=== PATIENT | female | born 1975 | race American Indian/Alaskan Native ===

== ENCOUNTER 2017-09-21 14:24 | Emergency (ER) | payer SELFPAY ==
[2017-09-21] MEDS ORDERED: CATAPRES ONE (15:28)
--- NOTE | 2017-09-21 15:33 | Emergency Department Report ---
Chief Complaint: Skin/Abscess/Foreign Body Stated Complaint: BIT ON LEG Time Seen by Provider: 09/21/17 15:29 - HPI History of Present Illness: Patient here reports that she has redness and a rash to the back of her right thigh and states that she's been bitten. Her pain to her right side is 5 out of 10. Denies being diabetic. Patient blood pressure is 201/131 and she says she gets headache on and off but she doesn't ever take her blood pressure. History of high blood pressure and only. Patient has a history of tubal ligation in 2006. Denies any chest pain or shortness of breath. Patient is not currently taking any blood pressure medication. - ROS Review of Systems: All systems are negative unless stated in HPI above - Exam Vital Signs: Vital Signs 09/21/17 14:32 Temperature 98.6 F Pulse Rate 84 Respiratory 84 H Rate Blood Pressure 201/131 O2 Sat by Pulse 99 Oximetry Physical Exam: Gen.: 42-year-old female well-nourished well-developed in no acute distress. Mini neurological exam: GCS of 15, no facial drooping. Speech is clear and fluid. Gait is normal. Patient ablated without any difficulties. Skin: Noted erythema area to Right posterior thigh. Tender to palpate. MSE screening note: Focused history and physical exam performed. Due to findings the following was ordered: Given clonidine 0.2 mg in triage area and blood pressure will be reevaluated. ED Medical Decision Making - EKG Data Interpretation: pericarditis - Medical Decision Making MDM: Patient given clonidine 0.2 mg her elevated blood pressure. She'll be going to fast track area where she'll be seen by provider. Blood pressure to be rechecked in one hour. Patient stable in no distress. ED Disposition for MSE Condition: Stable
[2017-09-21] MEDS ORDERED: CATAPRES PO ONE (15:39)
[2017-09-21] MEDS ORDERED: TYLENOL PO ONE (16:43)
--- NOTE | 2017-09-21 16:45 | Emergency Department Report ---
- General Chief complaint: Skin/Abscess/Foreign Body Stated complaint: BIT ON LEG Time Seen by Provider: 09/21/17 15:29 Source: patient Mode of arrival: Carried (Peds) Limitations: No Limitations - History of Present Illness Initial comments: 42-year-old female past medical history hypertension, anemia presents with complaint of 4 days of cellulitis and inflammation to right medial thigh. Patient denies fevers or chills. Denies chest pain palpitations shortness of breath nausea vomiting. Fully lucid awake alert and oriented 3 and ambulatory. Visible area of cellulitis approximately 7-8 cm diameter right inner thigh region. No other complaints. Patient states she is not currently on medication for high blood pressure. MD complaint: abscess/boil Onset/Timin -: days(s) Location: RLE (right thigh) Severity: moderate Severity scale (0 -10): 6 Quality: aching Consistency: constant Improves with: none Context: none Treatments Prior to Arrival: none - Related Data Previous Rx's Medication Instructions Recorded Last Taken Type Cephalexin [Keflex] 500 mg PO BID #14 capsule 09/21/17 Unknown Rx Sulfamethoxazole/Trimethoprim 1 each PO BID #14 tablet 09/21/17 Unknown Rx [Bactrim DS TAB] oxyCODONE /ACETAMINOPHEN [Percocet 1 tab PO Q6HR PRN #12 tablet 09/21/17 Unknown Rx 5/325] Allergies Allergy/AdvReac Type Severity Reaction Status Date / Time No Known Allergies Allergy Unverified 02/13/14 10:47 Abscess Boil HPI - HPI Chief Complaint: Skin/Abscess/Foreign Body Stated Complaint: BIT ON LEG Time Seen by Provider: 09/21/17 15:29 Home Medications: Previous Rx's Medication Instructions Recorded Last Taken Type Cephalexin [Keflex] 500 mg PO BID #14 capsule 09/21/17 Unknown Rx Sulfamethoxazole/Trimethoprim 1 each PO BID #14 tablet 09/21/17 Unknown Rx [Bactrim DS TAB] oxyCODONE /ACETAMINOPHEN [Percocet 1 tab PO Q6HR PRN #12 tablet 09/21/17 Unknown Rx 5/325] Allergies/Adverse Reactions: Allergies Allergy/AdvReac Type Severity Reaction Status Date / Time No Known Allergies Allergy Unverified 02/13/14 10:47 ED Review of Systems ROS: Stated complaint: BIT ON LEG Other details as noted in HPI Constitutional: denies: chills, fever Eyes: denies: eye pain, eye discharge, vision change ENT: denies: ear pain, throat pain Respiratory: denies: cough, shortness of breath, wheezing Cardiovascular: denies: chest pain, palpitations Endocrine: no symptoms reported Gastrointestinal: denies: abdominal pain, nausea, diarrhea Genitourinary: denies: urgency, dysuria, discharge Musculoskeletal: denies: back pain, joint swelling, arthralgia Skin: as per HPI. denies: rash, lesions Neurological: denies: headache, weakness, paresthesias Psychiatric: denies: anxiety, depression Hematological/Lymphatic: denies: easy bleeding, easy bruising ED Past Medical Hx - Past Medical History Previous Medical History?: Yes Hx Hypertension: Yes (only with ) Additional medical history: anemia, Vaginal delivery - Surgical History Past Surgical History?: Yes Additional Surgical History: Tubal 2007 - Social History Smoking Status: Never Smoker Substance Use Type: Alcohol, Non Opiate Pain - Medications Home Medications: Home Medications Medication Instructions Recorded Confirmed Last Taken Type Cephalexin [Keflex] 500 mg PO BID #14 capsule 09/21/17 Unknown Rx Sulfamethoxazole/Trimethoprim 1 each PO BID #14 tablet 09/21/17 Unknown Rx [Bactrim DS TAB] oxyCODONE /ACETAMINOPHEN [Percocet 1 tab PO Q6HR PRN #12 tablet 09/21/17 Unknown Rx 5/325] ED Physical Exam - General Limitations: No Limitations General appearance: alert, in no apparent distress - Head Head exam: Present: atraumatic, normocephalic - Eye Eye exam: Present: normal appearance, PERRL, EOMI - ENT ENT exam: Present: mucous membranes moist - Neck Neck exam: Present: normal inspection - Respiratory Respiratory exam: Present: normal lung sounds bilaterally. Absent: respiratory distress - Cardiovascular Cardiovascular Exam: Present: regular rate, normal rhythm. Absent: systolic murmur, diastolic murmur, rubs, gallop - GI/Abdominal GI/Abdominal exam: Present: soft, normal bowel sounds - Extremities Exam Extremities exam: Present: normal inspection - Expanded Lower Extremity Exam Right Hip exam: Present: normal inspection, full ROM Upper Leg exam: Present: tenderness Knee exam: Present: normal inspection, full ROM Lower Leg exam: Present: normal inspection, full ROM Ankle exam: Present: normal inspection, full ROM Foot/Toe exam: Present: normal inspection, full ROM Neuro vascular tendon exam: Present: no vascular compromise 1 - right inner thigh cellulitis - Back Exam Back exam: Present: normal inspection - Neurological Exam Neurological exam: Present: alert, oriented X3, CN II-XII intact, normal gait - Psychiatric Psychiatric exam: Present: normal affect, normal mood - Skin Skin exam: Present: warm, dry, intact, normal color. Absent: rash ED Course Vital Signs 09/21/17 09/21/17 09/21/17 14:32 16:49 17:17 Temperature 98.6 F Pulse Rate 84 85 Respiratory 84 H 18 18 Rate Blood Pressure 201/131 162/103 O2 Sat by Pulse 99 100 Oximetry - I & D Right Medial Thigh Type of Procedure: Simple Site: right medial inner thigh Blade Size: 11 I & D Procedure: betadine prep Progress: Infiltrated with lidocaine 2% without epinephrine. Good local anesthesia achieved. Single stab incision made with slight purulent drainage. Procedure tolerated well with minimal bleeding. Decompression of abscess achieved. Covered with 2 x 2 gauze afterward. No packing placed. ED Medical Decision Making - Medical Decision Making a/P abscess with some surroundign cellulitis, asymptomatic HTN 1- successful I&D, course of keflex and bactrim 2- I advised pt to continue taking her BP meds and f/u with PMD 3- case d/w dr. cochran before discharge Critical care attestation.: If time is entered above; I have spent that time in minutes in the direct care of this critically ill patient, excluding procedure time. ED Disposition Clinical Impression: Asymptomatic hypertension, Cellulitis of right thigh, Abscess, Encounter for incision and drainage procedure Disposition: TO HOME OR SELFCARE Is pt being admited?: No Does the pt Need Aspirin: No Condition: Stable Instructions: Cellulitis (ED), Abscess Incision and Drainage (ED), Abscess (ED) , Hypertension (ED) Prescriptions: Cephalexin [Keflex] 500 mg PO BID #14 capsule oxyCODONE /ACETAMINOPHEN [Percocet 5/325] 1 tab PO Q6HR PRN #12 tablet PRN Reason: Pain Sulfamethoxazole/Trimethoprim [Bactrim DS TAB] 1 each PO BID #14 tablet Referrals: [facility] [Outside] - 3-5 Days [facility] [Outside] - 3-5 Days Forms: Accompanied Note, Work/School Release Form(ED) Time of Disposition: 18:12
[2017-09-21] MEDS ORDERED: XYLOCAINE 1% 20 mL INFILTRATI ONE (16:47)
[2017-09-21 16:53] VITALS: BP 162/103
[2017-09-21] MEDS ORDERED: NORCO 5/325 PO ONE (18:15)
== END 2017-09-21 18:58 | disposition home or self-care (01) ==
LOC: ED 14:24
DX: L02.415 Cutaneous abscess of right lower limb (principal); L03.115 Cellulitis of right lower limb; I10 Essential (primary) hypertension
CPT/HCPCS: 87116; 99282

== ENCOUNTER 2018-03-15 07:18 | Emergency (ER) | payer SELFPAY ==
[2018-03-15] MEDS ORDERED: ZOFRAN ODT PO ONE (08:25)
--- NOTE | 2018-03-15 08:27 | Emergency Department Report ---
ED ENT HPI - General Chief complaint: Sore Throat Stated complaint: SORE THROAT Time Seen by Provider: 03/15/18 08:18 Source: patient Mode of arrival: Ambulatory Limitations: No Limitations - History of Present Illness Initial comments: 42f pmh obesity p/w c/o sore throat, cough, nausea x3-4 days. Patient is awake alert and oriented 3 fully lucid. Some subjective fevers and chills. Primarily complaining of sore throat. Multiple sick contacts at home with similar symptoms. Patient denies abdominal pain but does state that sore throat is making her nauseous. No other complaints otherwise. Onset/Timin -: days(s) Location: throat Severity: moderate Quality: aching Consistency: constant Improves with: none - Related Data Previous Rx's Medication Instructions Recorded Last Taken Type Cephalexin [Keflex] 500 mg PO BID #14 capsule 09/21/17 Unknown Rx Sulfamethoxazole/Trimethoprim 1 each PO BID #14 tablet 09/21/17 Unknown Rx [Bactrim DS TAB] oxyCODONE /ACETAMINOPHEN [Percocet 1 tab PO Q6HR PRN #12 tablet 09/21/17 Unknown Rx 5/325] Dextromethorphan/Benzocaine 1 each PO Q4H PRN #1 box 03/15/18 Unknown Rx [Cepacol Sorethroat-Cough Brendan] Ibuprofen [Motrin] 800 mg PO Q8HR PRN #20 tablet 03/15/18 Unknown Rx Ondansetron [Zofran Odt] 4 mg PO Q8H PRN #12 tab.rapdis 03/15/18 Unknown Rx Allergies Allergy/AdvReac Type Severity Reaction Status Date / Time No Known Allergies Allergy Unverified 02/13/14 10:47 ED Dental HPI - General Chief complaint: Sore Throat Stated complaint: SORE THROAT Time Seen by Provider: 03/15/18 08:18 Source: patient Mode of arrival: Ambulatory Limitations: No Limitations - Related Data Previous Rx's Medication Instructions Recorded Last Taken Type Cephalexin [Keflex] 500 mg PO BID #14 capsule 09/21/17 Unknown Rx Sulfamethoxazole/Trimethoprim 1 each PO BID #14 tablet 09/21/17 Unknown Rx [Bactrim DS TAB] oxyCODONE /ACETAMINOPHEN [Percocet 1 tab PO Q6HR PRN #12 tablet 09/21/17 Unknown Rx 5/325] Dextromethorphan/Benzocaine 1 each PO Q4H PRN #1 box 03/15/18 Unknown Rx [Cepacol Sorethroat-Cough Brendan] Ibuprofen [Motrin] 800 mg PO Q8HR PRN #20 tablet 03/15/18 Unknown Rx Ondansetron [Zofran Odt] 4 mg PO Q8H PRN #12 tab.rapdis 03/15/18 Unknown Rx Allergies Allergy/AdvReac Type Severity Reaction Status Date / Time No Known Allergies Allergy Unverified 02/13/14 10:47 ED Review of Systems ROS: Stated complaint: SORE THROAT Other details as noted in HPI Constitutional: denies: chills, fever Eyes: denies: eye pain, eye discharge, vision change ENT: throat pain. denies: ear pain Respiratory: denies: cough, shortness of breath, wheezing Cardiovascular: denies: chest pain, palpitations Endocrine: no symptoms reported Gastrointestinal: denies: abdominal pain, nausea, diarrhea Genitourinary: denies: urgency, dysuria, discharge Musculoskeletal: denies: back pain, joint swelling, arthralgia Skin: denies: rash, lesions Neurological: denies: headache, weakness, paresthesias Psychiatric: denies: anxiety, depression Hematological/Lymphatic: denies: easy bleeding, easy bruising ED Past Medical Hx - Past Medical History Previous Medical History?: No Hx Hypertension: Yes (only with ) Additional medical history: anemia, Vaginal delivery - Surgical History Past Surgical History?: Yes Additional Surgical History: Tubal 2007 - Social History Smoking Status: Never Smoker Substance Use Type: None - Medications Home Medications: Home Medications Medication Instructions Recorded Confirmed Last Taken Type Cephalexin [Keflex] 500 mg PO BID #14 capsule 09/21/17 Unknown Rx Sulfamethoxazole/Trimethoprim 1 each PO BID #14 tablet 09/21/17 Unknown Rx [Bactrim DS TAB] oxyCODONE /ACETAMINOPHEN [Percocet 1 tab PO Q6HR PRN #12 tablet 09/21/17 Unknown Rx 5/325] Dextromethorphan/Benzocaine 1 each PO Q4H PRN #1 box 03/15/18 Unknown Rx [Cepacol Sorethroat-Cough Brendan] Ibuprofen [Motrin] 800 mg PO Q8HR PRN #20 tablet 03/15/18 Unknown Rx Ondansetron [Zofran Odt] 4 mg PO Q8H PRN #12 tab.rapdis 03/15/18 Unknown Rx ED Physical Exam - General Limitations: No Limitations General appearance: alert, in no apparent distress - Head Head exam: Present: atraumatic, normocephalic - Eye Eye exam: Present: normal appearance, PERRL, EOMI - ENT ENT exam: Present: mucous membranes moist - Expanded ENT Exam Expanded Throat exam: Positive: tonsillar erythema (bilateral tonsillar erythema. No FITNESS COORDINATOR uvula is midline) - Neck Neck exam: Present: normal inspection - Respiratory Respiratory exam: Present: normal lung sounds bilaterally. Absent: respiratory distress - Cardiovascular Cardiovascular Exam: Present: regular rate, normal rhythm. Absent: systolic murmur, diastolic murmur, rubs, gallop - GI/Abdominal GI/Abdominal exam: Present: soft, normal bowel sounds - Extremities Exam Extremities exam: Present: normal inspection - Back Exam Back exam: Present: normal inspection - Neurological Exam Neurological exam: Present: alert, oriented X3 - Psychiatric Psychiatric exam: Present: normal affect, normal mood - Skin Skin exam: Present: warm, dry, intact, normal color. Absent: rash ED Course Vital Signs 03/15/18 07:29 Temperature 99 F Pulse Rate 97 H Blood Pressure 156/102 O2 Sat by Pulse 98 Oximetry ED Medical Decision Making - Medical Decision Making A/P: Tonsillitis 1-throat lozenges, Motrin when necessary, Zofran 2-follow up with primary care doctor 3-xr unremarkable Critical care attestation.: If time is entered above; I have spent that time in minutes in the direct care of this critically ill patient, excluding procedure time. ED Disposition Clinical Impression: Sore throat Disposition: DC-01 TO HOME OR SELFCARE Is pt being admited?: No Does the pt Need Aspirin: No Condition: Stable Instructions: Tonsillitis (ED), Upper Respiratory Infection (ED) Prescriptions: Dextromethorphan/Benzocaine [Cepacol Sorethroat-Cough Brendan] 1 each PO Q4H PRN #1 box PRN Reason: Sore Throat Ibuprofen [Motrin] 800 mg PO Q8HR PRN #20 tablet PRN Reason: Pain Ondansetron [Zofran Odt] 4 mg PO Q8H PRN #12 tab.rapdis PRN Reason: Nausea Referrals: [facility] [Provider Group] - 3-5 Days [facility] [Outside] - 3-5 Days Forms: Work/School Release Form(ED), Accompanied Note Time of Disposition: 08:46
--- NOTE | 2018-03-15 08:40 | XRay Report ---
ROUTINE CHEST, TWO VIEWS: HISTORY: Worsening cough. No comparison. The trachea, heart, mediastinal contour, lung sherwood and bony thorax are unremarkable. IMPRESSION: Unremarkable chest x-ray.
[2018-03-15] MEDS ORDERED: DECADRON IM ONE (08:42)
[2018-03-15] MEDS ORDERED: BICILLIN L-A IM ONE (08:43)
[2018-03-15 09:23] VITALS: BP 146/100
== END 2018-03-15 09:22 | disposition home or self-care (01) ==
LOC: ED 07:18
DX: J02.9 Acute pharyngitis, unspecified (principal); Z98.51 Tubal ligation status
CPT/HCPCS: 71046; 87116; 87430; 96372; 99284; J0561; J1100; Q0162

== ENCOUNTER 2022-06-25 08:14 | Observation (INO) | payer OTHER ==
[2022-06-22 11:54] LABS: Hematocrit 35.3 % (30.3-42.9); Hemoglobin 12.3 gm/dl (10.1-14.3); Mean Corpuscular HGB Conc 35 % (30-34); Mean Corpuscular Volume 95 fl (79-97); Platelet Count 270 K/mm3 (140-440); Red Blood Count 3.72 M/mm3 (3.65-5.03); Red Cell Distribution Width 13.2 % (13.2-15.2)
[2022-06-22 12:18] LABS: BUN/Creatinine Ratio 17; Blood Urea Nitrogen 19 mg/dL (7-17); Calcium 9.4 mg/dL (8.4-10.2); Hemolysis Index 5
--- NOTE | 2022-06-24 00:59 | History and Physical Report ---
History of Present Illness Date of examination: 06/22/22 History of present illness: Patient has been reassessed/reevaluated. H&P has been reviewed. No interval changes. This is a 47 years old female who presents with uterine fibroids.and menstrual disorder. The symptoms began 3 months ago. She complains of irregular menses, heavy bleeding, dysmenorrhea, pelvic pain, pelvic pressure and clotting. Menses started at age 14. Menstrual flow lasts > 7 days. Patient's work up has included hysterosonogram with a benign endometrial biopsy and revealed endometrial polyp and myomas. Patient's symptoms when present disrupts her normal daily activities Patient desires definitive treatment ] Vital Signs: Patient Profile: 47 Years Old Female LMP: 05/28/2022 Height: 65 inches Weight: 250 pounds BMI: 41.60 Temp: 97.6 degrees F BP sittin / 80 (left arm) Pt. in pain? yes Location: pelvis Intensity: 5 Type: aching Menstrual History: LMP (date): 05/28/2022 Past History : 1 Term Births: 1 Premature Births: 0 Living Children: 1 Para: 1 Mult. Births: 0 Prev : 0 Aborta: 0 Elect. Ab: 0 Spont. Ab: 0 Ectopics: 0 Current Allergies (reviewed today): No known allergies Past Medical History: Hypertension Pneumonia (2019) Fibroids Endometrial Polyp Past Surgical History: Lsc Tubal Ligation (2005) Family History Summary: Other Family Member - Has Family History of Uterine Cancer - Entered On: 04/16/2022 Other Family Member - Has Family History of Ovarian Cancer - Entered On: 04/16/2022 Other Family Member - Has No Family History of Colon Cancer - Entered On: Other Family Member - Has No Family History of Breast Cancer - Entered On: 04/16/2022 Other Family Member - Has Family History of Hypertension - Entered On: 04/16/2022 Social History: Marital Status: Children: 1 Occupation: [employer] Risk Factors Tobacco use: never Passive smoke exposure: no Alcohol use: yes Type: occ Caffeine use (drinks/day): 0 Exercise (times/week): 4 Seatbelt use: 100 % [employer] History Operations: Lsc Tubal Ligation (2005) Abnormal PAP: negative Uterine Anomaly: positive fibroids Infection History HIV Risk Eval: no Personal hx. of genital herpes: no Review of Systems General Complains of fatigue. Denies fever, chills, sweats, anorexia, weakness, malaise, weight loss and sleep disorder. Complains of menorrhagia, pelvic pain and painful periods. Denies vaginal discharge, incontinence, dysuria, hematuria, urinary frequency, amenorrhea, abnormal vaginal bleeding, genital sores, decreased libido, painful sex, urinary urgency, hot flashes, vaginal dryness, vaginal itching and vaginal odor. CV Denies chest pains, palpitations, syncope, dyspnea on exertion, orthopnea, PND and peripheral edema. Resp Denies cough, dyspnea at rest, excessive sputum, hemoptysis, wheezing and pleurisy. GI Denies nausea, vomiting, diarrhea, constipation, change in bowel habits, abdominal pain, melena, hematochezia, jaundice, gas/bloating, indigestion/heartburn, dysphagia and odynophagia. Breast Denies left breast lump, right breast lump, nipple discharge, bloody discharge from nipple, breast pain, abnormal mammogram and breast enlargement. Psych Denies depression, anxiety, irritability and mood swings. Past History Past Medical History: hypertension, other (SEE HPI FOR DETAILS) Past Surgical History: Other (SEE HPI FOR DETAILS) Social history: full code, other (SEE HPI FOR DETAILS) Family history: other (SEE HPI FOR DETAILS) Medications and Allergies Allergies Allergy/AdvReac Type Severity Reaction Status Date / Time No Known Allergies Allergy Verified 06/16/22 15:24 Home Medications Medication Instructions Recorded Confirmed Last Taken Type Losartan/Hydrochlorothiazide 1 each PO QDAY 06/16/22 06/16/22 Unknown History [Losartan-Hctz 50-12.5 mg Tab] Phentermine HCl [Adipex-P] 37.5 mg PO QDAY 06/16/22 06/16/22 Unknown History Review of Systems Constitutional: other (SEE HPI FOR DETAILS) Exam - Physical Exam Narrative exam: HEENT: normocephalic, no lesions or deformities Skin no significant abnormal lesions or rashes Chest: respiratory effort normal, clear to auscultation CV: regular, normal S1-S2, no murmur, no rub, no gallop Abdomen: Obese, normal bowel sounds, soft, nontender, no HSM Neuro: no gross anomalities Extremities: no clubbing, cyanosis, or edema [employer] Exams Vulva/Vagina: No lesions, normal BUS, normal rugae Cervix: No lesions; no cervical motion tenderness Uterus: unable to palpate due to obesity Adnexae: unable to palpate due to obesity Rectovaginal: exam defered - Constitutional Vitals: Temp Pulse Resp BP Pulse Ox 98.2 F 76 16 108/76 100 06/22/22 11:40 06/22/22 11:40 06/22/22 11:40 06/22/22 11:40 06/22/22 11:40 Results - Labs CBC & Chem 7: 06/22/22 11:45 06/22/22 06:00 Assessment and Plan - Patient Problems (1) Intramural leiomyoma of uterus Current Visit: No Status: Acute Plan to address problem: Diagnosis explained to patient . Questions answered. Discussed with patient various medical, surgical and radiological therapies common for treatment including expectant management, myomectomy hysterectomy and uterine artery embolization Patient desires robotic assisted total hysterectomy. Consent reviewed and signed . The risks and alternatives for this surgery were reviewed with the patient. Discuss the risks of the surgery including infection, bleeding possibly heavy enough to require a blood transfusion, possible damage to bowel, bladder or ureter. Patient understand that this surgery with make her sterile.Patient understands if her ovaries are removed she will become menopausal. Also if unable to complete robitcally a laparotomy may be required. Patient understands and desires to proceed. (2) Excessive and frequent menstruation with regular cycle Current Visit: No Status: Acute Plan to address problem: Probably secondary to # 1& 3 (3) Endometrial polyp Current Visit: No Status: Acute (4) Dysmenorrhea Current Visit: No Status: Acute Plan to address problem: Probably secondary to # 1 (5) Chronic pelvic pain in female Current Visit: No Status: Chronic Plan to address problem: Probably secondary to # 1 (6) Hypertension Current Visit: No Status: Chronic Qualifiers: Hypertension type: primary hypertension Qualified Code(s): I10 - Essential (primary) hypertension (7) BMI 40.0-44.9, adult Current Visit: No Status: Chronic Plan to address problem: Patient has been advised that obesity does increase risks of surgical and risks of post operative complications.
[~2022-06-25 08:14] MED LIST: ACETAMINOPHEN 500 MG TAB PO SCH; CELECOXIB 200 MG CAP PO NR; GABAPENTIN 300 MG CAP PO NR; LACTATED RINGERS 1,000 ML IV SCH; MIDAZOLAM 2 MG/2 ML INJ IV NR; SCOPOLAMINE TRANSDERMAL PATCH 72 HR TD NR; fentaNYL 100 MCG/2 ML INJ IV PRN
[2022-06-25] MEDS ORDERED: BUPIVACAINE-EPINEPHRINE/PF 0.25%-1:200,000 (30 ML) VIAL INFILTRATI ONE (10:20)
[2022-06-25] MEDS ORDERED: dexAMETHasone 4 MG/ML VIAL ONE (10:20)
[2022-06-25] MEDS ORDERED: ONDANSETRON 4 MG/2 ML INJ ONE (10:41)
[2022-06-25] MEDS ORDERED: dexAMETHasone 20 MG/5 ML VIAL ONE (10:41)
[2022-06-25] MEDS ORDERED: ROCURONIUM 50 MG/5 ML INJ IV ONE (10:42)
[2022-06-25] MEDS ORDERED: HYDROmorphone 1 MG/1 ML INJ ONE (10:42)
[2022-06-25] MEDS ORDERED: propofoL 200 MG/20 ML VIAL IV ONE (10:42)
[2022-06-25] MEDS ORDERED: LIDOCAINE MPF (2%) 20 MG/1 ML VIAL 5 ML ONE (10:42)
[2022-06-25] MEDS ORDERED: SUCCINYLCHOLINE CHLORIDE 200 MG/10 ML INJ MDV ONE (10:42)
[2022-06-25] MEDS ORDERED: NEOMY 40 MG/POLYMYXIN B 200,000 UNITS/ML (GU) AMPULE IR ONE ×2 (11:27→13:06)
--- NOTE | 2022-06-25 11:35 | Anesthesia Day of Surgery ---
Anesthesia Day of Surgery - Day of Surgery Patient Examined: Yes Patient H&P Reviewed: Yes Patient is NPO: Yes
--- NOTE | 2022-06-25 11:35 | Anesthesia Consultation ---
Anesthesia Consult and Med Hx Date of service: 06/25/22 - Airway Anesthetic Teeth Evaluation: Good ROM Head & Neck: Adequate Mental/Hyoid Distance: Adequate Mallampati Class: Class II Intubation Access Assessment: Probably Good - Pre-Operative Health Status ASA Pre-Surgery Classification: ASA3 Proposed Anesthetic Plan: General - Pulmonary Hx Respiratory Symptoms: No - Cardiovascular System Hx Hypertension: Yes - Central Nervous System CVA: No - Endocrine Hx Renal Disease: No Hx Liver Disease: No Hx Insulin Dependent Diabetes: No Hx Non-Insulin Dependent Diabetes: No Hx Thyroid Disease: No - Other Systems Hx Obesity: Yes (BMI 41) - Additional Comments Anesthesia Medical History Comments: No prior GA. No FHx anesthetic complications.
[2022-06-25] MEDS ORDERED: ONDANSETRON 4 MG/2 ML INJ IV PRN (11:39)
[2022-06-25] MEDS ORDERED: oxyCODONE /ACETAMINOPHEN 5-325MG TAB PO PRN (12:00)
[2022-06-25] MEDS ORDERED: SODIUM CHLORIDE 0.9% IRR 1,500 ML BOTTLE IR ONE (13:07)
[2022-06-25] MEDS ORDERED: SODIUM CHLORIDE 0.9% IRRIG SOLN 2000 ML IR ONE (13:07)
--- NOTE | 2022-06-25 14:09 | Operative Report ---
Operative Report Operative Report: Date of procedure: June 25, 2022 Pre-operative diagnosis: Symptomatic leiomyomata with menorrhalgia dysmenorrhea pelvic pain Post-operative diagnosis: Same Procedure name(s): Robotic assisted total hysterectomy with bilateral salpingectomy Surgeon: Panda Paredes MD Newspaper Managing Editor: Lor Lu, certified alcohol and drug counselor Anesthesia: General endotracheal EBL: 125 cc Complications: None Findings: Patient probably 8 to 10 weeks size uterus with bilateral interrupted fallopian tubes and normal-appearing ovaries Specimen(s): Uterus with cervix and bilateral fallopian tubes Procedure: Patient was brought to the operating room where general anesthesia was induced without difficulty. Patient was placed in the dorsal lithotomy position. Prepped and draped in the usual sterile manner for robotic procedure. Surgical timeout was performed. Carrillo catheter was placed without difficulty. Speculum was placed in the vagina. A medium V-Care Uterine manipulator was placed without difficulty. Attention was now switched to the patient's abdomen. A vertical supra-umbilicus incision was made with a scalpel. A 8 mm trocar was placed in this incision under direct visualization. Intra-abdominal placement was verified with no evidence of internal organ damage. The patient was insufflated approximately 3-1/2 L of CO2 gas. She was placed in Trendelenburg position. The patient pelvic findings were noted as above. It was determined that the patient was a candidate for robotic procedure. Next 3 additional 8 mm trochars were placed for the robotic arms. 1 trocar was placed approximately 8cm from the center trocar on the patient's right and the 2 other trocar placements were placed left of the midline. The first 1 was approximately 8 cm from the midline incision with additional 1 place laterally approximately 6 to 8 cm. Each robotic trocar was placed under direct visualization with no evidence of internal organ damage. One 5 mm trocar was placed 2 fingerbreadths above the right iliac crest. At this time the patient was placed in extreme Trendelenburg. The da Mathew robot was then docked on the patient's right side. The trocars connected to the robot appropriately robotic instruments were placed under direct visualization no evidence of internal organ damage.. At this time I took my place under the robotic operating ochoa. Starting on the patient's right side the ureter was identified and found to be out of the operative field. Using the Synchroseal device the mesosalpinx under the fallopian tube were cauterized and cut starting from the distal end. Next the round ligament on that side was cauterized and cut. The broad ligament was opened and the bladder flap was started and taken to the midline on the side. Posterior leaf of the broad ligament was opened more. Next the utero-ovarian complex was then cauterized and cut. The uterine vessels were skeletonized. The ureter was clearly seen out of the operative field. The bladder was pushed away from the anterior uterus. The right uterine vessels were then cauterized and cut. Attention was then switched to the patient's left side. The same procedure was repeated on the left side with free and the left fallopian tube, completing the the bladder flap followed by cauterizing and cutting the utero-ovarian complex then isolating the uterine vessels cauterized and cutting and completing the bladder flap from the left side. At this time the uterus was appearing very cyanotic. After inspecting the bladder flap to insured no evidence of bladder injury, the colpotomy was then started. Incision started at 12 o'clock position until the V-Care could be seen. This incision was extended from 12-9 o'clock . Then from 12:00 to 3:00. Then from 9:00 to 6:00. This incision was extended from 3:00 to 6:00. At this time colpotomy was complete with no evidence of adjacent organ damage. The dental assistant instructor remove the uterus from through the colpotomy site. The vaginal cuff was irrigated and cauterized and found to be hemostatic. The cuff was closed with roboticly using 0 V- Lock suture. This closure was hemostatic after irrigation and Bovie. All pedicles were inspected and found to be hemostatic. The ureters were identified bilaterally and found to be functioning normal. The patient had clear urine in the Carrillo catheter with no evidence of mixture with blood. All instruments were then removed. The trocar sites were closed incisions were closed subcuticularly with 4-0 Monocryl. Dermabond was placed over the skin incisions. The patient tolerated procedure well. She was awakened in the operating room and accompanied to the recovery room in good condition.
[2022-06-25] MEDS: HYDROmorphone 0.5 MG/0.5 ML INJ IV PRN ×4 (14:15→15:14)
--- NOTE | 2022-06-25 14:19 | Short Stay Summary ---
Short Stay Documentation Date of service: 06/25/22 - History Principal diagnosis: Symptomatic leiomyomata H&P: dictated Past Medical History: hypertension, other (SEE HPI FOR DETAILS) Past Surgical History: Other (SEE HPI FOR DETAILS) Social history: full code, other (SEE HPI FOR DETAILS) - Allergies and Medications Current Medications: Allergies No Known Allergies Allergy (Verified 06/16/22 15:24) Home Medications Medication Instructions Recorded Confirmed Last Taken Type Losartan/Hydrochlorothiazide 1 each PO QDAY 06/16/22 06/16/22 Unknown History [Losartan-Hctz 50-12.5 mg Tab] Phentermine HCl [Adipex-P] 37.5 mg PO QDAY 06/16/22 06/16/22 Unknown History Active Medications Acetaminophen (Acetaminophen 500 Mg Tab) 1,000 mg PO PREOP LUANA Stop: 06/25/22 23:59 Last Admin: 06/25/22 09:30 Dose: 1,000 mg Acetaminophen (Acetaminophen 325 Mg Tab) 650 mg PO Q4H PRN PRN Reason: Pain MILD(1-3)/Fever >100.5/LYLE Hydrocodone Bitart/Acetaminophen (Hydrocodone/Acetaminophen 5-325 Mg Tab) 2 each PO Q6H PRN PRN Reason: Pain, Moderate (4-6) Celecoxib (Celecoxib 200 Mg Cap) 200 mg PO PREOP NR Stop: 06/25/22 23:59 Last Admin: 06/25/22 09:30 Dose: 200 mg Fentanyl (Fentanyl 100 Mcg/2 Ml Inj) 100 mcg IV ONCE PRN PRN Reason: sedation for nerve block Stop: 06/25/22 23:59 Gabapentin (Gabapentin 300 Mg Cap) 300 mg PO PREOP NR Stop: 06/25/22 23:59 Last Admin: 06/25/22 09:30 Dose: 300 mg Hydromorphone HCl (Hydromorphone 0.5 Mg/0.5 Ml Inj) 0.5 mg IV Q10MIN PRN PRN Reason: Pain , Severe (7-10) Stop: 06/25/22 23:59 Cefazolin Sodium 3 gm/ Sodium (Chloride) 100 mls @ 100 mls/30 min IV PREOP NR; Protocol Stop: 06/25/22 23:59 Lactated Ringer's (Lactated Ringers) 1,000 mls @ 100 mls/hr IV DIRECT LUANA Stop: 06/25/22 23:59 Last Admin: 06/25/22 09:00 Dose: 100 mls/hr Methocarbamol (Methocarbamol 750 Mg Tab) 750 mg PO PREOP LUANA Stop: 06/25/22 23:59 Last Admin: 06/25/22 09:30 Dose: 750 mg Midazolam HCl (Midazolam 2 Mg/2 Ml Inj) 2 mg IV PREOP NR Stop: 06/25/22 23:59 Last Admin: 06/25/22 10:57 Dose: 2 mg Ondansetron HCl (Ondansetron 4 Mg/2 Ml Inj) 4 mg IV ONCE PRN PRN Reason: Nausea And Vomiting Stop: 06/25/22 23:59 Oxycodone/Acetaminophen (Oxycodone /Acetaminophen 5-325mg Tab) 1 tab PO ONCE PRN PRN Reason: Pain, Moderate (4-6) Stop: 06/25/22 18:00 Scopolamine (Scopolamine Transdermal Patch 72 Hr) 1 each TD PREOP NR Stop: 06/25/22 23:59 Last Admin: 06/25/22 09:30 Dose: 1 each - Physical exam General appearance: mild distress, well-nourished, obese Integumentary: no rash HEENT: Atraumatic Lungs: Normal air movement Breasts: deferred Heart: Regular rate Gastrointestinal: hypoactive bowel sounds (As expected postoperatively), tenderness (As expected postoperatively), distended Female Genitourinary: normal (Status post robotic assisted surgery) Rectal Exam: deferred Extremities: no ischemia, No edema - Brief post op/procedure progress note Date of procedure: 06/25/22 (See dictated operative note for details) Anesthesia: GETA Specimen disposition: to lab Condition: stable - Hospital course Hospital course: Patient was admitted underwent the above procedure without any complications. Patient will be discharged with follow-up in office in 1-2 weeks for postop check. - Disposition Condition at discharge: Good Disposition: 01 HOME / SELF CARE / HOMELESS - Discharge Diagnoses (1) Intramural leiomyoma of uterus Status: Acute (2) Excessive and frequent menstruation with regular cycle Status: Acute (3) Endometrial polyp Status: Acute (4) Dysmenorrhea Status: Acute (5) Chronic pelvic pain in female Status: Chronic (6) Hypertension Status: Chronic Qualifiers: Hypertension type: primary hypertension Qualified Code(s): I10 - Essential (primary) hypertension (7) BMI 40.0-44.9, adult Status: Chronic Short Stay Discharge Plan Activity: advance as tolerated Diet: regular Wound: open to air Additional Instructions: Patient instructed no heavy lifting for 4 weeks. No intercourse for 8 weeks. Call office for fever, chills, nausea, vomiting or pain not controlled by pain medications. Ambulation is encouraged. Patient's call for heavy vaginal bleeding. Patient instructed to keep her scheduled post operative office appointment. Follow up with: PRIMARY CAREMD [Primary Care Provider] - 7 Days
[2022-06-25] MEDS ORDERED: HYDROcodone/ACETAMINOPHEN 5-325 MG TAB PO PRN ×2 (15:00→16:49)
[2022-06-25] MEDS ORDERED: ACETAMINOPHEN 325 MG TAB PO PRN ×2 (15:00→16:49)
[2022-06-25] MEDS ORDERED: MIDAZOLAM 2 MG/2 ML INJ IV PRN (15:23)
[2022-06-25] MEDS ORDERED: METOCLOPRAMIDE 10 MG/2 ML INJ IV PRN (16:49)
[2022-06-25] MEDS ORDERED: NALOXONE 0.4 MG/1 ML INJ IV PRN (16:49)
[2022-06-25] MEDS ORDERED: D5W/LACTATED RINGERS 1,000 ML IV SCH (17:00)
[2022-06-25] MEDS ORDERED: HYDROmorphone 0.5 MG/0.5 ML INJ ONE (17:22)
[2022-06-25] MEDS ORDERED: HYDROmorphone 0.5 MG/0.5 ML INJ IV PRN (17:22)
--- NOTE | 2022-06-25 17:52 | Post Anesthesia Evaluation ---
- Post Anesthesia Evaluation Patient Participated: Yes Airway Patent: Yes Stable Respiratory Function: Yes Nausea/Vomiting: No Temp > 96.8F: Yes Pain Manageable: Yes Adequeate Hydration: Yes Anesthesia Complications: No
--- NOTE | 2022-06-25 19:08 | Event Note ---
Date: 06/25/22 Patient was admitted from recovery room due to complaints of excessive pain. Patient denies any nausea vomiting. Patient's vital signs are stable. Discussed operative findings with patient. Patient's questions answered. Patient is asking about drinking or eating. Abdominal exam obese soft some expected tenderness. Will check postop H&H. Patient does not appear to have surgical abdomen. We will can continue to observe we will keep patient's n.p.o. due to level of pain is complaining of and recovery room. Consider radiological examination or exploratory surgery continue to have excessive pain.
[2022-06-25] MEDS: KETOROLAC 30 MG/1 ML INJ IV SCH ×3 (19:37→23:00)
[2022-06-25 20:28] LABS: Hematocrit 34.2 % (30.3-42.9); Hemoglobin 11.2 gm/dl (10.1-14.3)
[2022-06-25] MEDS: ceFAZolin/NS 1 GM/50 ML 1 GM/50 ML BAG IV SCH (22:00)
[2022-06-26] MEDS ORDERED: HYDROmorphone 0.5 MG/0.5 ML INJ IV ONE (03:39)
[2022-06-26] MEDS: ceFAZolin/NS 1 GM/50 ML 1 GM/50 ML BAG IV SCH (05:25)
[2022-06-26] MEDS: KETOROLAC 30 MG/1 ML INJ IV SCH ×2 (05:26→10:09)
[2022-06-26] MEDS: DOCUSATE SODIUM 100 MG CAP PO SCH ×2 (05:35→10:09)
[2022-06-26] MEDS ORDERED: NON-FORMULARY EACH (Losartan/Hydrochlorothiazide [Losartan-Hctz 50-12.5 Mg Tab] 1 EACH Tab PO SCH (10:00)
[2022-06-26 12:41] VITALS: BP 114/68
== END 2022-06-26 13:20 | disposition home or self-care (01) ==
LOC: OR 08:14 → OB 16:51
PROVIDERS: ADMIT Obstetrics & Gynecology; ATTEND Obstetrics & Gynecology
DX: D25.1 Intramural leiomyoma of uterus (principal); I10 Essential (primary) hypertension; N92.0 Excessive and frequent menstruation with regular cycle; N94.6 Dysmenorrhea, unspecified; N84.0 Polyp of corpus uteri; G89.29 Other chronic pain; J18.9 Pneumonia, unspecified organism; R10.2 Pelvic and perineal pain; Z98.890 Other specified postprocedural states; Z68.41 Body mass index [BMI] 40.0-44.9, adult; Z90.710 Acquired absence of both cervix and uterus; Z98.51 Tubal ligation status; Z79.899 Other long term (current) drug therapy
CPT/HCPCS: 36415; 58552; 64450; 80048; 81025; 84703; 85014; 85018; 85027; 86850; 86900; 86901; 88302; 88307; 96365; 96366; 96375; 96376; G0378; G0379; J0330; J0690; J1100; J1170; J1885; J2250; J2405; J2704; J2765; J3010; J3490; J7121; J7060